=== PATIENT | female | born 1975 | race Caucasian/White ===

== ENCOUNTER 2018-09-10 12:49 | Outpatient (RCR) | payer MEDICAID, SELFPAY ==
--- NOTE | 2018-09-10 13:42 | HMH.PTOPEV ---
PT Outpatient Evaluation Rehab PT Outpatient Evaluation Start: 09/10/18 13:29 Freq: Status: Active Protocol: Document 09/10/18 13:29 CELIO (Rec: 09/10/18 13:41 CELIO [id number]) Electronically Signed By Edmar Estrella, PT 09/10/18 13:29 Outpatient Therapy Subjective History Subjective History Pt is a 43 year old female presenting to outpatient PT with reports of L hip pain starting approximately 2 weeks ago of insidious onset. Pt reports that she woke up in the morning while laying on her left hip and began to have hip pain that radiated down to the L lateral knee. Commorbidities inclued elevated BMI. Chief Complaint Pain Symptom Type Ache Throb Symptoms Relieved By Rest/Positioning OTC Meds Symptoms Aggravated By Sitting Prior Functional Limitations None Level of pain today (0-10) 0 Pain scale - at its best (0-10) 0 Pain scale - at its worst (0-10) 6 Hip/Knee Eval Gait Observation General Gait Pattern Observation Antalgic Gait Assistive Device Assistive Devices None / NA Palpation Tenderness left Knee Palpation Overall Comment Trochanteric bursa Hip Palpation Findings Tenderness MMT right Hip Strength Reason Not Measured WFL Knee Strength Reason Not Measured WFL left Hip Flexion Strength Grade 5 Normal Hip Abduction Strength Grade 4 Good Hip Adduction Strength Grade 5 Normal Hip Extension Strength Grade 4 Good Hip External Rotation Strength Grade 4- Good- Hip Internal Rotation Strength Grade 4- Good- Knee Strength Reason Not Measured WFL ROM bilateral Hip ROM Reason Not Measured Within Functional Limits Knee ROM Reason Not Measured Within Functional Limits DTR Rt Patellar 2+ Lt Patellar 2+ Rt Ankle 2+ Lt Ankle 2+ Special Tests Hip Mary Lou Test Positive Left Hip Piriformis Test Positive Left Outpatient Therapy Assessment Impairments Problems/Impairmments Palpation Tenderness Impaired Range of Motion Impaired Strength Impaired Walking Impaired Sitting Impaired Household Care Impaired Stair Climbing
== END 2018-09-10 12:50 | disposition home or self-care (01) ==
LOC: PT 12:49
PROVIDERS: Family Provider Family Medicine; PCP Family Medicine; Referring Provider Family Medicine; Visit Provider Family Medicine
DX: M25.552 Pain in left hip (principal)
CPT/HCPCS: 97163

== ENCOUNTER → 2021-09-23 13:37 | Outpatient (CLI) | payer OTHER, SELFPAY ==
--- NOTE | 2021-09-23 13:44 | XR_ITS ---
PROCEDURE INFORMATION: Exam: XR Left Knee Exam date and time: 09/23/2021 1:44 PM Age: 46 years old Clinical indication: Pain; Knee; Left; Additional info: Left knee pain TECHNIQUE: Imaging protocol: XR Left knee. Views: 4 or more views. COMPARISON: No relevant prior studies available. FINDINGS: Bones/joints: No acute osseous pathology. Anatomic alignment. Soft tissues: Diffuse soft tissue prominence. IMPRESSION: No acute osseous pathology.
== END ==
PROVIDERS: Visit Provider Orthopaedic Surgery
DX: M25.562 Pain in left knee (principal)
CPT/HCPCS: 73564

== ENCOUNTER 2022-05-15 08:01 | Emergency (ER) | payer OTHER, SELFPAY ==
[2022-05-15 08:10] VITALS: BP 149/99; PULSE 85; RESP 18; TEMP 36.8; O2SAT 100; BMI 42.5
--- NOTE | 2022-05-15 08:29 | HMH.EDUTC ---
[facility] [place] Disposition Clinical Impression: URI (upper respiratory infection) Qualifiers: URI type: unspecified URI Qualified Code(s): J06.9 - Acute upper respiratory infection, unspecified Disposition: Home, Self-Care Condition on Discharge: Good Instructions: Sinusitis, DI for Sinusitis, DI for COVID-19 (Suspected or Confirmed ) Additional Instructions: *Monitor Temp, Over the counter Motrin or Tylenol as directed/as needed Tylenol every 4 hours and Motrin every 6 hours (as long as your family doctor has told you that you can take it) for fever or pain. and straight to ER if unable to lower temp less than 101.0 after medication given *Warm salt water gargles may help to soothe the throat *Throat Lozenges *Warm fluids like tea with honey may help to soothe the throat *Sleep elevated *Humidifier/Vaporizer *Flonase 2 sprays in each nostril daily but be aware that it may take 2-3 days before you notice improvement Your throat swab was sent for culture. Those results are typically sent to your primary care. Be sure to follow up in 2-3 days with your family doctor/primary care physician if no improvement so they can review those result and treat if necessary. If you don?t have a primary care doctor, I recommend you get one but in the mean time, you will have to return to a walk in clinic Follow up IMMEDIATELY for new or worsening symptoms or no Noticeable improvement over the next 48-72 hours. 911 for difficulty breathing or swallowing You were tested for today for COVID19 your test result should be back in the next 24-48 hours, you may check your results on the [facility] My Health Portal Make sure to take your Vitamins Vit. C Vit D and Zinc if you can take them Prescriptions: Benzonatate [Benzonatate 100mg cap] 100 mg PO Q8HP PRN #30 cap PRN Reason: Cough Transmission Status: Pending to [facility] Fluticasone Propionate [Flonase 50mcg nasal spray 16gm] 1 spr NS DAILY #1 each Transmission Status: Pending to [facility] methylPREDNISolone [Medrol 4mg tab] 4 mg PO DIRECTED #21 tab Transmission Status: Pending to [facility] Azithromycin [Z-Fco 250mg Tab] 250 mg PO DIRECTED #6 tab Transmission Status: Pending to [facility] Referrals: Provider,Referral, [Primary Care Provider] - As needed Forms: Work/School Release Time of Disposition: 08:50 Medical Decision Making - Raji Inquiry Pt receiving controlled substance: No Raji was queried for this patient: No Vital Signs: 05/15/22 08:10 Temperature 98.3 F Temperature Source Oral Pulse Rate [Right Brachial] 85 Respiratory Rate 18 Blood Pressure [Right Arm] 149/99 H Blood Pressure Mean [Right Arm] 115 Blood Pressure Source [Right Arm] Automatic Cuff Blood Pressure Position [Right Arm] Sitting 02 Sat by Pulse Oximetry 100 Oxygen Delivery Method Room Air - Lab Data Lab results reviewed: Yes: I reviewed the patient's lab results. Lab Results 05/15/22 08:20: Group A Strep Rapid Negative Orders (Tests/Meds): ORDERS Category Date Time Status Strep Screen Confirmation Stat Micro 05/15/22 08:20 Received [facility] [place] HPI - General Stated complaint: blisters, sore throat, fever Time Seen by Provider: 05/15/22 08:29 Mode of Arrival: Ambulatory Source of Information: Patient Limitations: No Limitations Description of Symptoms (Recalled from Triage Doc. by RN): PATIENT C/O FEVER, SORE THROAT WITH BLISTERS, COUGH AND HEADACHE SINCE SUNDAY HEENT Symptoms (Recalled from RN notes): Yes Resp Symptoms (Recalled from RN notes): Yes Skin Symptoms (Recalled from RN notes): No MS Symptoms (Recalled from RN notes): No Functional Status (Recalled from RN notes): WNL - History of Present Illness Provider Complaint: Patient states that she started feeling bad on State htat she has been having sore throat, sinus congestion and pressure blisters on her throat States that she has continued to not feel well and had low grade feve
[2022-05-15 08:41] LABS: Strep Scrn Group A (Rapid) Negative (Negative)
[2022-05-15 08:55] VITALS: BP 149/99; PULSE 85; RESP 18; TEMP 36.8; O2SAT 100
== END 2022-05-15 08:58 | disposition home or self-care (01) ==
PROVIDERS: Emergency Provider Nurse Practitioner
DX: J06.9 Acute upper respiratory infection, unspecified (principal); J02.9 Acute pharyngitis, unspecified; R51.9 Headache, unspecified; Z79.51 Long term (current) use of inhaled steroids; Z79.52 Long term (current) use of systemic steroids; Z79.899 Other long term (current) drug therapy; Z88.2 Allergy status to sulfonamides; Z88.8 Allergy status to other drugs, medicaments and biological substances
CPT/HCPCS: 87430; 99213; C9803; G0463; U0003; U0005

== ENCOUNTER 2023-09-04 12:05 | Emergency (ER) | payer OTHER, SELFPAY ==
[2023-09-04 12:30] VITALS: BP 168/106; PULSE 82; RESP 20; TEMP 36.8; O2SAT 100; BMI 38.9
--- NOTE | 2023-09-04 13:04 | EXP.UTC ---
Discharge Plan Disposition Patient Disposition: Home, Self-Care Condition: Good Prescriptions Prescriptions: New fluticasone propionate [Flonase Allergy Relief] 50 mcg/actuation spray,suspension 1 spray intranasal DAILY Qty: 16 0RF Rx Instructions: administer into each nostril daily benzonatate 100 mg capsule 100 mg PO TID PRN (Reason: cough) Qty: 30 0RF methylprednisolone [Medrol (Fco)] 4 mg tablets,dose pack See Rx Instructions .Route .COMPLEX 6 Days Qty: 21 0RF Rx Instructions: taper pack; azithromycin [Zithromax Z-Fco] 250 mg tablet See Rx Instructions .ROUTE .COMPLEX 5 Days Qty: 6 0RF Rx Instructions: For 250 mg dose pack: take 500 mg today (day 1), then 250 mg for 4 days (days 2-5) Referrals Follow up/Referrals: Provider,Referral, MD [Primary Care Provider] - See instructions Activity Restrictions/Add. Instructions Additional Instructions/Restrictions: *Monitor Temp, Over the counter Motrin or Tylenol as directed/as needed Tylenol every 4 hours and Motrin every 6 hours (as long as your family doctor has told you that you can take it) for fever or pain. and straight to ER if unable to lower temp less than 101.0 after medication given *Warm salt water gargles may help to soothe the throat *Throat Lozenges? *Warm fluids like tea with honey may help to soothe the throat? *Sleep elevated *Humidifier/Vaporizer *Flonase 2 sprays in each nostril daily but be aware that it may take 2-3 days before you notice improvement *Your throat swab was sent for culture. Those results are typically sent to your primary care. Be sure to follow up in 2-3 days with your family doctor/primary care physician if no improvement so they can review those result and treat if necessary. If you don?t have a primary care doctor, I recommend you get one but in the mean time, you will have to return to a walk in clinic Follow up IMMEDIATELY for new or worsening symptoms or no Noticeable improvement over the next 48-72 hours. 911 for difficulty breathing or swallowing Watch your blood pressure if you continue to have elevated reading follow up with your Family Doctor Clinical Impressions Clinical Impression: Pharyngitis Qualifiers: Pharyngitis/tonsillitis etiology: unspecified etiology Qualified Code(s): J02.9 - Acute pharyngitis, unspecified Instructions Patient Instructions: Sore Throat, DI for Nasal Congestion Discharge ED Provider: Brittani Bui [facility] [place] General Stated complaint: fever, sore throat Mode of Arrival: Ambulatory Source of Information: Patient Limitations: No Limitations Time Seen by Provider: 09/04/23 13:04 Description of Symptoms (Recalled from Triage Doc. by RN): PATIENT C/O FEVER, SORE THROAT AND COUGH SINCE SUNDAY HEENT Symptoms (Recalled from RN notes): Yes Resp Symptoms (Recalled from RN notes): Yes Skin Symptoms (Recalled from RN notes): No MS Symptoms (Recalled from RN notes): No Functional Status (Recalled from RN notes): WNL History of Present Illness Provider Complaint: Patient states that she started last with nasal drainage sore throat and cough States that she has had headache and fever on and off States that she thought it may have been a virus but today when her throat was still hurting she was worried that she may have strep throat or something so she came in Related Data Previous Rx's Medication Instructions Recorded azithromycin 250 mg tablet See Rx Instructions PO .COMPLEX 5 09/04/23 (Zithromax Z-Fco) days #6 tabs benzonatate 100 mg capsule 100 mg PO TID PRN cough #30 caps 09/04/23 fluticasone propionate 50 1 spray intranasal DAILY #16 grams 09/04/23 mcg/actuation nasal spray,suspension (Flonase Allergy Relief) methylprednisolone 4 mg tablets in See Rx Instructions .Route 09/04/23 a dose pack (Medrol (Fco)) .COMPLEX 6 days #21 tabs Allergies Allergy/AdvReac Type Severity Reaction Status Date / Ti
[2023-09-04 13:06] LABS: UTC Strep Screen (Rapid) Negative (Negative)
[2023-09-04 13:15] VITALS: BP 168/106; PULSE 82; RESP 20; TEMP 36.8; O2SAT 100
== END 2023-09-04 13:19 | disposition home or self-care (01) ==
PROVIDERS: Emergency Provider Nurse Practitioner
DX: J02.9 Acute pharyngitis, unspecified (principal); R50.9 Fever, unspecified; R51.9 Headache, unspecified
CPT/HCPCS: 87880; 99212; 99214; G0463

== ENCOUNTER 2023-12-11 12:31 | Emergency (ER) | payer OTHER, SELFPAY ==
[2023-12-11 12:40] VITALS: BP 150/88; PULSE 95; RESP 20; TEMP 37.2; O2SAT 97; BMI 38.3
--- NOTE | 2023-12-11 12:56 | EXP.UTC ---
Discharge Plan Disposition Patient Disposition: Home, Self-Care Condition: Good Prescriptions Prescriptions: New azithromycin [Zithromax Z-Fco] 250 mg tablet See Rx Instructions .ROUTE .COMPLEX 5 Days Qty: 6 0RF Rx Instructions: For 250 mg dose pack: take 500 mg today (day 1), then 250 mg for 4 days (days 2-5) benzonatate 100 mg capsule 100 mg PO TID PRN (Reason: cough) Qty: 30 0RF methylprednisolone [Medrol (Fco)] 4 mg tablets,dose pack See Rx Instructions .Route .COMPLEX 6 Days Qty: 21 0RF Rx Instructions: taper pack; guaifenesin [Mucinex] 600 mg tablet extended release 12hr 1,200 mg PO BID PRN (Reason: cough) Qty: 20 0RF Referrals Follow up/Referrals: Provider,Referral, MD [Primary Care Provider] - See instructions Activity Restrictions/Add. Instructions Additional Instructions/Restrictions: *Monitor Temp, Over the counter Motrin or Tylenol as directed/as needed Tylenol every 4 hours and Motrin every 6 hours (as long as your family doctor has told you that you can take it) for fever or pain. and straight to ER if unable to lower temp less than 101.0 after medication given *Warm salt water gargles may help to soothe the throat *Throat Lozenges? *Warm fluids like tea with honey may help to soothe the throat? *Sleep elevated *Humidifier/Vaporizer Take medication as prescribed Follow up IMMEDIATELY for new or worsening symptoms or no Noticeable improvement over the next 48-72 hours. 911 for difficulty breathing or swallowing Clinical Impressions Clinical Impression: Sinusitis Qualifiers: Sinusitis location: unspecified location Chronicity: unspecified Qualified Code(s): J32.9 - Chronic sinusitis, unspecified Instructions Patient Instructions: Sinusitis, DI for Sinusitis Discharge ED [place] Brittani [place]ui [facility] [place] General Stated complaint: fever, body aches, congestion Mode of Arrival: Ambulatory Source of Information: Patient Limitations: No Limitations Time Seen by Provider: 12/11/23 12:56 Description of Symptoms (Recalled from Triage Doc. by RN): PATIENT C/O FEVER, BODY ACHES, COUGH AND HEADACHE. SHE STATES SYMPTOMS HAVE BEEN INTERMITTEN X 1 MONTH, BUT STARTED BACK YESTERDAY HEENT Symptoms (Recalled from RN notes): Yes Resp Symptoms (Recalled from RN notes): Yes Skin Symptoms (Recalled from RN notes): No MS Symptoms (Recalled from RN notes): No Functional Status (Recalled from RN notes): WNL History of Present Illness Provider Complaint: Patient states that she has been having sinus congestion, pressure and drainage on and off for a month that seems to come and go States started again several days ago and got worse yesterday States that she is feeling achy, headache, sinus congestion and feels like it is trying to drain in the back of her throat States that today she came in to get checked and felt like it was trying to start moving into her chest so she wanted to get checked before she ended up with bronchitis Related Data Previous Rx's Medication Instructions Recorded azithromycin 250 mg tablet See Rx Instructions PO .COMPLEX 5 12/11/23 (Zithromax Z-Fco) days #6 tabs benzonatate 100 mg capsule 100 mg PO TID PRN cough #30 caps 12/11/23 guaifenesin 600 mg tablet, 1,200 mg PO BID PRN cough #20 tabs 12/11/23 extended release 12 hr (Mucinex) methylprednisolone 4 mg tablets in See Rx Instructions .Route 12/11/23 a dose pack (Medrol (Fco)) .COMPLEX 6 days #21 tabs Allergies Allergy/AdvReac Type Severity Reaction Status Date / Time cephalexin Allergy Verified 05/15/22 08:29 nitrofurantoin Allergy hives Verified 11/29/21 17:04 [From Macrobid] Sulfa (Sulfonamide Allergy Verified 05/15/22 08:29 Antibiotics) sulfamethoxazole Allergy Verified 12/11/23 12:55 [From Bactrim] trimethoprim [From Bactrim] Allergy Verified 12/11/23 12:55 Worker's Comp Is this a Worker's Comp case?: No [facility] Disclaimer: The information contained in this section may have been updated after the patient was seen, as this information can be updated by other users. Medical History (Updated 12/11/23 @ 13:03 by Brittani Bui APRN) History of anemia Surgical History (Updated 12/11/23 @ 12:55 by Cheryle Nguyen RN) History of section History of cholecystectomy History of tonsillectomy History of tubal ligation Social History Smoking Status: Never smoker alcohol intake: never current occupational status: other Travel in the last 8 weeks: None ROS Obtained: Yes All systems reviewed & no additional complaints except as documented and Yes Systems reviewed as appropriate & no additional complaints except as documented Constitutional Constitutional: Reports system reviewed and no additional complaints, except as documented, Reports as per HPI, Reports body ache, Reports fever(s) and Reports headache(s) ENT Ears, Nose, Mouth, and Throat: Reports system reviewed and no additional complaints, except as documented, Reports as per HPI, Reports headache(s), Reports sinus pain and Reports sinus pressure Cardiovascular Cardiovascular: Reports system reviewed and no additional complaints, except as documented and Reports as per HPI Respiratory Respiratory: Reports system reviewed and no additional complaints, except as documented, Reports as per HPI, Reports chest congestion and Reports cough (dry cough) Gastrointestinal Gastrointestingal: Reports system reviewed and no additional complaints, except as documented and as per HPI Neurologic Neurologic: Reports headache(s) Physical Exam General General appearance: alert and in no apparent distress ENT ENT exam: Present mucous membranes moist Expanded ENT Exam Nose exam: Present sinus tenderness Throat exam: Present other (Pharyngeal erythema noted with PND) Respiratory Respiratory exam: Present normal lung sounds bilaterally; Absent respiratory distress or wheezes Cardiovascular Cardiovascular exam: Present regular rate, normal rhythm and normal heart sounds Abdominal Exam Abdominal exam: Present soft and normal bowel sounds; Absent distention or tenderness Neurological Exam Neurological exam: Present alert, oriented X3 and normal gait Medical Decision Making Raji Inquiry Pt receiving controlled substance: No Raji was queried for this patient: No Vital Signs: 12/11/23 12:40 Temperature 98.9 F Temperature Source Oral Pulse Rate [Right Brachial] 95 H Respiratory Rate 20 Blood Pressure [Right Arm] 150/88 H Blood Pressure Mean [Right Arm] 108 Blood Pressure Source [Right Arm] Automatic Cuff Blood Pressure Position [Right Arm] Sitting 02 Sat by Pulse Oximetry 97 Oxygen Delivery Method Room Air Lab Data Lab results reviewed: Yes I reviewed the patient's lab results.
[2023-12-11 12:57] VITALS: BP 150/88; PULSE 95; RESP 20; TEMP 37.2; O2SAT 97
[2023-12-11 12:57] LABS: UTC Influenza A Antigen Negative (Negative); UTC Influenza B Antigen Negative (Negative)
== END 2023-12-11 13:10 | disposition home or self-care (01) ==
PROVIDERS: Emergency Provider Nurse Practitioner
DX: J01.90 Acute sinusitis, unspecified (principal); R50.9 Fever, unspecified; R51.9 Headache, unspecified; R05.9 Cough, unspecified; M79.18 Myalgia, other site; R09.81 Nasal congestion; R09.82 Postnasal drip
CPT/HCPCS: 87804; 99212; 99214; G0463

== ENCOUNTER 2024-01-02 09:20 | Emergency (ER) | payer OTHER, SELFPAY ==
[2024-01-02 09:20] VITALS: BP 147/80; PULSE 98; RESP 16; TEMP 37.7; O2SAT 98; BMI 38.3
--- NOTE | 2024-01-02 09:49 | ED_ITS ---
Discharge Plan Disposition Patient Disposition: Home, Self-Care Condition: Good Prescriptions Prescriptions: New oseltamivir [Tamiflu] 75 mg capsule 75 mg PO Q12H 5 Days Qty: 10 0RF dextromethorphan polistirex [Delsym 12 hour] 30 mg/5 mL suspension,extended rel 12 hr 10 ml PO Q12H PRN (Reason: cough) Qty: 89 0RF No Action azithromycin [Zithromax Z-Fco] 250 mg tablet See Rx Instructions .ROUTE .COMPLEX 5 Days Qty: 6 0RF Rx Instructions: For 250 mg dose pack: take 500 mg today (day 1), then 250 mg for 4 days (days 2-5) benzonatate 100 mg capsule 100 mg PO TID PRN (Reason: cough) Qty: 30 0RF methylprednisolone [Medrol (Fco)] 4 mg tablets,dose pack See Rx Instructions .Route .COMPLEX 6 Days Qty: 21 0RF Rx Instructions: taper pack; guaifenesin [Mucinex] 600 mg tablet extended release 12hr 1,200 mg PO BID PRN (Reason: cough) Qty: 20 0RF Referrals Follow up/Referrals: Provider,Referral, MD [Primary Care Provider] - See instructions Activity Restrictions/Add. Instructions Additional Instructions/Restrictions: * Start Tamiflu today if you are going to take it. Discussed risk and possible benefits. * Lots of rest * Increase Fluids water, Gatorade, powerade, pedialyte,if infant/toddler/child * Alternate Tylenol and / or ibuprofen as discussed for fever, aches, chills Follow up IMMEDIATELY with your family doctor for new or worsening Symptoms OR no noticeable improvement over the next 48-72 hours, 911 for difficulty or breathing * You or your child area contagious until no fever, aches, chills for 24 hours with medication for symptoms * Help Prevent the spread of influenza: * ?Wash your hands often. Use soap and water. Wash your hands after you use the bathroom, change a child's diapers, or sneeze. Wash your hands before you prepare or eat food. Use gel hand cleanser that has 60% alcohol, when soap and water are not available. Do not touch your eyes, nose, or mouth unless you have washed your hands first. * Cover your mouth when you sneeze or cough. Cough into a tissue or the bend of your arm. If you use a tissue, throw it away immediately and wash your hands. * Clean shared items with a germ-killing telephone cleaner. Clean table surfaces, doorknobs, and light switches. Do not share towels, silverware, and dishes with people who are sick. Wash bed sheets, towels, silverware, and dishes with soap and water. * Wear a mask over your mouth and nose if you are sick. The face mask may help protect others from becoming infected with the flu. Wear the mask when in common areas of your home or if you seek care with a healthcare provider. * Stay away from others if you are sick. Stay at home until 24 hours after your fever and symptoms are gone. ? Clinical Impressions Clinical Impression: Influenza Stand Alone Forms Stand Alone Forms: Work/School Release Instructions Patient Instructions: DI for Influenza -- Adult, Influenza Discharge ED Provider: Brittani Bui [facility] [place] General Stated complaint: fever, headache Mode of Arrival: Ambulatory Source of Information: Patient Limitations: No Limitations Time Seen by Provider: 01/02/24 09:49 Description of Symptoms (Recalled from Triage Doc. by RN): Patient reports fev er, cough and ear pain. HEENT Symptoms (Recalled from RN notes): Yes Resp Symptoms (Recalled from RN notes): No Skin Symptoms (Recalled from RN notes): No MS Symptoms (Recalled from RN notes): No Functional Status (Recalled from RN notes): wnl History of Present Illness Provider Complaint: Patient states that yesterday she started with body aches, chills, headache, pain in her ears and over all not feeling well states that this morning she was still feeling achy all over and cough so she came in to get checked Related Data Previous Rx's Medication Instructions Recorded azithromycin 250 mg tablet See Rx Instructions PO .COMPLEX 5 12/11/23 (Zithromax Z-Fco) days #6 tabs benzonatate 100 mg capsule 100 mg PO TID PRN cough #30 caps 12/11/23 guaifenesin 600 mg tablet, 1,200 mg PO BID PRN cough #20 tabs 12/11/23 extended release 12 hr (Mucinex) methylprednisolone 4 mg tablets in See Rx Instructions .Route 12/11/23 a dose pack (Medrol (Fco)) .COMPLEX 6 days #21 tabs dextromethorphan polistirex 30 10 ml PO Q12H PRN cough #89 mL 01/02/24 mg/5 mL oral susp ext.release 12hr (Delsym 12 hour) oseltamivir 75 mg capsule (Tamiflu) 75 mg PO Q12H 5 days #10 caps 01/02/24 Allergies Allergy/AdvReac Type Severity Reaction Status Date / Time cephalexin Allergy Verified 05/15/22 08:29 nitrofurantoin Allergy hives Verified 11/29/21 17:04 [From Macrobid] Sulfa (Sulfonamide Allergy Verified 05/15/22 08:29 Antibiotics) sulfamethoxazole Allergy Verified 12/11/23 12:55 [From Bactrim] trimethoprim [From Bactrim] Allergy Verified 12/11/23 12:55 Worker's Comp Is this a Worker's Comp case?: No [facility] Disclaimer: The information contained in this section may have been updated after the patient was seen, as this information can be updated by other users. Medical History (Updated 01/02/24 @ 09:53 by Brittani Bui APRN) History of anemia Surgical History (Updated 12/11/23 @ 12:55 by Cheryle Nguyen RN) History of section History of cholecystectomy History of tonsillectomy History of tubal ligation Social History Smoking Status: Never smoker alcohol intake: never current occupational status: other Travel in the last 8 weeks: None ROS Obtained: Yes All systems reviewed & no additional complaints except as documented and Yes Systems reviewed as appropriate & no additional complaints except as documented Constitutional Constitutional: Reports system reviewed and no additional complaints, except as documented, Reports as per HPI, Reports body ache, Reports chills, Reports fever(s) and Reports headache(s) ENT Ears, Nose, Mouth, and Throat: Reports system reviewed and no additional complaints, except as documented, Reports as per HPI, Reports otalgia and Reports headache(s) Cardiovascular Cardiovascular: Reports system reviewed and no additional complaints, except as documented and Reports as per HPI Respiratory Respiratory: Reports system reviewed and no additional complaints, except as documented, Reports as per HPI and Reports cough Gastrointestinal Gastrointestingal: Reports system reviewed and no additional complaints, except as documented and as per HPI Neurologic Neurologic: Reports headache(s) Physical Exam General General appearance: alert and in no apparent distress ENT ENT exam: Present mucous membranes moist Expanded ENT Exam TM/Canal exam: Bilateral TM: bulging (clear fluid noted no redness) Nose exam: Absent sinus tenderness Throat exam: Present normal inspection Respiratory Respiratory exam: Present normal lung sounds bilaterally; Absent respiratory distress or wheezes Cardiovascular Cardiovascular exam: Present regular rate, normal rhythm and normal heart sounds Neurological Exam Neurological exam: Present alert, oriented X3 and normal gait Medical Decision Making Raji Inquiry Pt receiving controlled substance: No Raji was queried for this patient: No Vital Signs: 01/02/24 09:20 Temperature 99.8 F H Temperature Source Oral Pulse Rate [Radial] 98 H Respiratory Rate 16 Blood Pressure [Right Arm] 147/80 H Blood Pressure Mean [Right Arm] 102 Blood Pressure Source [Right Arm] Automatic Cuff Blood Pressure Position [Right Arm] Sitting 02 Sat by Pulse Oximetry 98 Oxygen Delivery Method Room Air Lab Data Lab results reviewed: Yes I reviewed the patient's lab results.
[2024-01-02 10:09] LABS: UTC Influenza A Antigen Positive (Negative); UTC Influenza B Antigen Negative (Negative)
[2024-01-02 10:10] VITALS: BP 147/80; PULSE 98; RESP 16; TEMP 37.7; O2SAT 98
== END 2024-01-02 10:10 | disposition home or self-care (01) ==
PROVIDERS: Emergency Provider Nurse Practitioner
DX: J10.1 Influenza due to other identified influenza virus with other respiratory manifestations (principal); R50.9 Fever, unspecified; R51.9 Headache, unspecified; H92.03 Otalgia, bilateral; M79.18 Myalgia, other site
CPT/HCPCS: 87804; 99212; 99214; G0463